=== PATIENT | male | born 1995 | race Caucasian/White ===

== ENCOUNTER 2017-02-18 10:26 | Emergency (ER) | payer BC, MEDICAID ==
[~2017-02-18] VITALS: Ht 180.3 cm; Wt 90.7 kg
[~2017-02-18 10:26] MED LIST: ALBU17AE19 IH
[2017-02-18] MEDS ORDERED: ONDANSETRON IV *ER 4 MG/2 ML VIAL IV ONE (10:45)
[2017-02-18] MEDS ORDERED: IV NS 1000 ML 1,000 ML IV ONE (10:45)
[2017-02-18] MEDS ORDERED: MORPHINE SULFATE 2 MG/1 ML DISP.SYRIN IV ONE (10:45)
[2017-02-18] MEDS ORDERED: MORPHINE SULFATE 2 MG/1 ML DISP.SYRIN ONE (11:03)
[2017-02-18] MEDS ORDERED: ONDANSETRON 4 MG/2 ML VIAL ONE (11:03)
--- NOTE | 2017-02-18 12:48 | NUR ---
pt was evaluated by dr dnucan. pt was d/c to homt. d/c tnstructions given to the dr by dr duncan.
[2017-02-18 12:49] VITALS: BP 125/69
== END 2017-02-18 12:54 | disposition home or self-care (01) ==
LOC: ER 10:26
DX: S52.502A Unspecified fracture of the lower end of left radius, initial encounter for closed fracture (principal); S52.602A Unspecified fracture of lower end of left ulna, initial encounter for closed fracture; J45.909 Unspecified asthma, uncomplicated; V00.131A Fall from skateboard, initial encounter; Y93.51 Activity, roller skating (inline) and skateboarding; Y99.8 Other external cause status; Y92.89 Other specified places as the place of occurrence of the external cause
CPT/HCPCS: 29105; 73070; 73090; 73110; 73120; 96361; 96374; 99285; A4663; J2270; J2405; J7030